=== PATIENT | male | born 1960 | race Caucasian/White ===

== ENCOUNTER 2019-09-09 10:49 | Emergency (ER) | payer SELFPAY ==
[~2019-09-09] VITALS: Ht 175.3 cm; Wt 98.9 kg
[2019-09-09 10:55] VITALS: Ht 175.3 cm; Wt 98.9 kg
[2019-09-09 15:00] VITALS: BP 155/99
== END 2019-09-09 15:00 | disposition home or self-care (01) ==
LOC: ED 10:49
DX: H10.33 Unspecified acute conjunctivitis, bilateral (principal); J45.909 Unspecified asthma, uncomplicated; Z98.890 Other specified postprocedural states